=== PATIENT | female | born 1990 | race Caucasian/White ===

== ENCOUNTER 2021-01-20 23:10 | Emergency (ER) | payer OTHER, SELFPAY ==
[2021-01-20 23:12] VITALS: BP 147/91; PULSE 88; RESP 16; TEMP 36.4; O2SAT 99
[2021-01-20 23:32] VITALS: BP 135/100; PULSE 80; RESP 15; O2SAT 100
[2021-01-20 23:53] LABS: Add Urine Microscopic? NO; Appearance Urine Clear (Clear); Bilirubin Urine Negative (Negative); Blood Urine Negative (Negative); Color Urine Yellow (Yellow); Glucose Urine UA Negative (Negative); Ketones Urine Negative (Negative); Leukocyte Esterase Ur Negative LEU/UL (Negative); Nitrate Urine Negative (Negative); Protein Urine Negative (Negative); Specific Grav Ur 1.012 (1.001-1.035); Urobilinogen Urine Negative mg/dL (<2.0)
--- NOTE | 2021-01-21 00:26 | ED.GENADULT ---
HPI - General Adult General Chief complaint: Urogenital-Female Stated complaint: urinary incontinence Time Seen by Provider: 01/20/21 23:51 Source: patient and RN notes reviewed Mode of arrival: ambulatory Limitations: no limitations History of Present Illness HPI narrative: This is a 30 year old female who presents for evaluation of frequent urination. She states since this morning she has had increased urinary urgency and frequency. She thinks she is only urinating a small amount at time. She states she wet the bed when she was sleeping tonight. She reports lower abdominal pain that is present because she is needs to urinate. She denies dysuria, hematuria, nausea, vomiting, fever or back pain. She denies taking any new medications. She denies drinking more fluids. Related Data Allergies Allergy/AdvReac Type Severity Reaction Status Date / Time No Known Allergies Allergy Verified 01/20/21 23:34 Review of Systems Review of Systems: All systems reviewed & are unremarkable except as noted in HPI and below PMFSH Past Medical History Medical History (Updated 01/21/21 @ 02:28 by Kaitlin Galvan MD) Anxiety Depression Insomnia Surgical History Surgical History (Updated 01/21/21 @ 00:30 by Kaitlin Galvan MD) No pertinent past surgical history Social History Social History (Updated 01/21/21 @ 00:30 by Kaitlin Galvan MD) Smoking status: Never smoker Gender identity (if verbalized by the patient): Female Exam Const: General: no acute distress and alert Orientation/consciousness: patient oriented x3 Eyes: EOM: EOMs intact bilaterally Chest: Chest palpation & inspection: normal inspection of the chest Resp: Effort & Inspection: normal respiratory effort and no retractions Auscultation: clear to auscultation bilaterally Cardio: Rate: regular rate Rhythm: regular rhythm Heart sounds: no murmurs GI: GI Palp: Yes Soft to palpation, Yes Tenderness to palpation present (GI) and No Guarding due to palpation present (GI) Auscultation: normal bowel sounds Skin: General skin exam: normal color Rashes: no rashes Neuro: General: patient oriented x3, moves all extremities and CN's II-XI intact bilaterally Course Reevaluation(s) Reevaluation #1: I discussed with patient that kidney function, electrolytes and UA are normal. She does not have back or spinal compression symptoms. She will follow up for evaluation of her urinary frequency. Vital Signs Vital signs: Vital Signs Temperature 97.5 F L 01/20/21 23:12 Pulse Rate 88 01/20/21 23:12 Respiratory Rate 16 01/20/21 23:12 Blood Pressure 147/91 H 01/20/21 23:12 Pulse Oximetry 99 01/20/21 23:12 Temperature 97.5 F L 01/20/21 23:12 Pulse Rate 71 01/21/21 01:13 Respiratory Rate 12 01/21/21 01:13 Blood Pressure 125/77 01/21/21 01:13 Pulse Oximetry 100 01/21/21 01:13 Medical Decision Making Vital Signs Vital Signs: Vital Signs Temperature 97.5 F L 01/20/21 23:12 Pulse Rate 88 01/20/21 23:12 Respiratory Rate 16 01/20/21 23:12 Blood Pressure 147/91 H 01/20/21 23:12 Pulse Oximetry 99 01/20/21 23:12 Temperature 97.5 F L 01/20/21 23:12 Pulse Rate 71 01/21/21 01:13 Respiratory Rate 12 01/21/21 01:13 Blood Pressure 125/77 01/21/21 01:13 Pulse Oximetry 100 01/21/21 01:13 Lab Data Result diagrams: 01/21/21 00:55 01/21/21 00:55 Labs: Lab Results 01/20/21 01/21/21 01/21/21 Range/Units 23:39 00:55 00:55 WBC 10.9 H (4.5-10.0) K/mm3 RBC 4.29 (4.2-5.4) M/mm3 Hgb 12.5 (12.0-15.0) g/dL Hct 36.7 L (37.0-47.0) % MCV 85.5 (80-100) fl MCH 29.1 (26-34) pg MCHC 34.1 (32-36) g/dl RDW 11.8 (11.5-14.5) % Plt Count 373 (150-375) k/mm3 MPV 8.8 (7.4-10.4) fl Immature Gran % (Auto) 0.2 (0-0.5) % Neut % (Auto) 44.0 L (45.5-73.1) % Lymph % (Auto) 39.6 (18.3-44.2) % [place] % (Auto) 7.2
[2021-01-21 01:02] LABS: Basophils Absolute Auto 0.1 K/mm3 (0.0-0.1); Basophils Percent Auto 0.9 % (0.2-1.2); Eosinophils Absolute Auto 0.9 K/mm3 (0-0.3); Eosinophils Percent Auto 8.1 % (0-4.4); Hematocrit 36.7 % (37.0-47.0); Hemoglobin 12.5 g/dL (12.0-15.0); Immature Granulocyte Absolute 0.02 K/mm3 (0.00-0.031); Immature Granulocyte Percent A 0.2 % (0-0.5); Lymphocytes Percent Auto 39.6 % (18.3-44.2); Mean Corpuscular HGB Conc 34.1 g/dl (32-36); Mean Corpuscular Hemoglobin 29.1 pg (26-34); Mean Corpuscular Volume 85.5 fl (80-100); Mean Platelet Volume 8.8 fl (7.4-10.4); Monocytes Absolute Auto 0.8 K/mm3 (0.1-0.6); Monocytes Percent Auto 7.2 % (2.6-8.5); Neutrophils Absolute Auto 4.8 K/mm3 (1.3-6.7); Platelet Count Result 373 k/mm3 (150-375); Red Blood Count 4.29 M/mm3 (4.2-5.4); Red Cell Distribution Width 11.8 % (11.5-14.5); White Blood Count 10.9 K/mm3 (4.5-10.0)
[2021-01-21 01:13] VITALS: BP 125/77; PULSE 71; RESP 12; O2SAT 100
[2021-01-21 01:13] LABS: Alanine Aminotransferase 11 U/L (4-35); Alkaline Phosphatase 41 U/L (38-126); Anion Gap 9 mmol/L (8-16); Aspartate Amino Transferase 27 U/L (14-36); Bilirubin,Total 0.4 mg/dL (0.2-1.3); Blood Urea Nitrogen 10 mg/dL (7-17); Calcium 9.6 mg/dL (8.4-10.2); Carbon Dioxide 24 mmol/L (22-30); Chloride 104 mmol/L (98-107); Estimated CRCL calculation 93 ml/min; Estimated Glomerular Filt Rate > 60; Glucose 95 mg/dL (65-105); Potassium 3.6 mmol/L (3.4-5.0); Sodium 137 mmol/L (137-145)
[2021-01-21] MEDS: HYOSCYAMINE SULFATE 0.125 MG TABLET PO (02:09)
== END 2021-01-21 02:30 | disposition home or self-care (01) ==
PROVIDERS: Emergency Provider General Practice; PCP Internal Medicine
DX: R39.15 Urgency of urination (principal)
CPT/HCPCS: 36415; 80053; 81003; 81025; 85025; 99283; A9270

== ENCOUNTER 2025-05-04 13:19 | Emergency (ER) | payer OTHER, SELFPAY ==
--- NOTE | 2025-05-04 13:30 | ED.EAR ---
HPI - Ear Problem General Chief complaint: Ear Stated complaint: EARACHE/SORE THROAT Time Seen by Provider: 05/04/25 13:36 Source: patient and RN notes reviewed Mode of arrival: ambulatory Limitations: no limitations History of Present Illness HPI Narrative: 34-year-old female presents with concern for left-sided sore throat and left ear pain. Reports symptoms for 5 days. She was seen at a different urgent care and they told her she had fluid in her ear, she has been taking antihistamines and decongestants without relief. She reports headache. She denies fevers. MD Complaint: ear pain and other (Sore throat) Related Data Allergies Allergy/AdvReac Type Severity Reaction Status Date / Time No Known Allergies Allergy Verified 05/04/25 13:34 Review of Systems Review of Systems: CONSTITUTIONAL: Denies malaise, chills, sweats, or fever. EYES: Denies visual changes, redness, or discharge. ENT: Denies rhinorrhea, congestion, sinus pain. Reports otalgia and sore throat. CARDIOVASCULAR: Denies chest pain, palpitations, or edema. RESPIRATORY: Denies cough. Denies dyspnea. GASTROINTESTINAL: Denies abdominal pain, nausea, vomiting, diarrhea SKIN: Denies rash or itching. MUSCULOSKELETAL: Denies myalgia. NEUROLOGIC: Denies headache. All systems reviewed & are unremarkable except as noted in HPI and below PMFSH Past Medical History Medical History (Updated 05/04/25 @ 13:45 by Liana Olivraes NP) Insomnia Depression Anxiety Surgical History Surgical History (Updated 01/21/21 @ 00:30 by Kaitlin Galvan MD) No pertinent past surgical history Social History Social History (Updated 01/21/21 @ 00:30 by Kaitlin Galvan MD) Smoking status: Never smoker Gender identity (if verbalized by the patient): Female Comments At time of signature, agree with nursing past medical, surgical, social and family history. There is no relevant family history pertinent to the presenting complaint Exam Narrative: GENERAL: Well-appearing, well-nourished, and in no acute distress. HEAD: Normocephalic EYES: PERRLA, conjunctivae clear ENT: Nares clear. Mucous membranes moist. TM pearly lares with sharp light reflex bilaterally; no tragal tenderness. Oropharynx erythematous without lesions. Left Tonsils enlarged with exudate, no drooling, no hoarseness, no trismus, uvula midline. NECK: Supple. No lymphadenopathy CHEST: Clear to auscultation, breath sounds equal. No wheezing, rhonchi, rales, or stridor. No respiratory distress, speaks in full sentences. HEART: Regular rate and rhythm. No murmur heard. SKIN: Warm, dry, no rash. NEURO: Alert and oriented x3. PSYCH: Normal mood and affect Course Course Emergency Course: Patient is aware of diagnosis, understands and agrees to treatment plan. Anticipatory guidance given. Patient agrees to follow-up as directed and is aware of reasons to seek care at the emergency department. Portions of this record may have been created with voice recognition software Level of Care: Express Care Visit Vital Signs Vital signs: Reviewed. Medical Decision Making MDM Narrative Medical decision making narrative: I evaluated this in the [facility]. History is obtained from patient who is an independent historian and physical exam was performed.? Available medical records were reviewed. ? Exam findings and relevant testing show no acute concerns or changes; patient is non-toxic appearing and is in no distress. Differential diagnosis considered: Garcia virus, strep pharyngitis, allergic rhinitis, upper respiratory tract infection, sinusitis, rhinosinusitis, nasopharyngitis. viral pharyngitis, otitis media, otitis externa, otitis effusion, pre/post auricular cellulitis, mastoiditis, cerumen impaction, foreign body. Exam findings show no acute concerns or changes; patient is non-toxic appearing and is in no distress. Patient is appropriate for outpatient treatment and follow-up. ? Differential diagnosis and treatment plan were discussed with the patient. Patient agrees with discussion and after shared medical decision making agrees with plan of care. All questions were answered to the patient's satisfaction. Patient is appropriate for outpatient treatment and follow-up. Critical Care Time Critical Care Time Critical Care Time: No Discharge Plan Discharge Clinical Impression: Acute tonsillitis Patient Disposition: Home Condition: Stable Instructions: Antibiotic Form, Tonsillitis (ED) Additional Instructions: -Take the medication as prescribed. Throw away the toothbrush after 24hours of antibiotic. -Eat and drink things that are easy to swallow, like tea or soup, or popsicles to suck on. -Oral rinses such as: Salt water gargles and/or may use topical anesthetic (eg. Chloraseptic spray) or lozenges to relieve dryness or throat pain). -Take Tylenol and ibuprofen as needed for pain and fever as directed. -Frequent hand washing or hand [place] is one of the best ways to prevent spread of infection. -Follow up with primary care provider in 2-3 days if condition is not improving; or seek ER visit if you have trouble breathing, cannot drink enough fluids, have muffled voice, difficulty opening your mouth, or severe swelling. Patient Language: Azeri Prescriptions: New penicillin V potassium 500 mg tablet 500 mg PO Q12H 10 Days Qty: 20 0RF Follow-up/Referrals: [facility] [Other] Stand Alone Forms: Work/School Release IP Time of Disposition: 13:45
[2025-05-04 13:35] VITALS: BP 120/81; PULSE 121; RESP 16; TEMP 37; O2SAT 100
== END 2025-05-04 13:48 | disposition home or self-care (01) ==
PROVIDERS: Emergency Provider Nurse Practitioner
DX: J03.90 Acute tonsillitis, unspecified (principal)
CPT/HCPCS: 87081; 99213; G0463